=== PATIENT | female | born 2000 | race Caucasian/White ===

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

== ENCOUNTER 2022-09-23 18:07 | Emergency (ER) | payer OTHER ==
[2022-09-23 18:13] VITALS: RESP 18; BMI 21.4
[2022-09-23 18:33] VITALS: BP 122/76; PULSE 81
[2022-09-23] MEDS ORDERED: FAMOTIDINE 20 MG/50 ML IVPB 20 MG/50 ML MG IVPB ONE ×2 (18:35→18:45)
[2022-09-23] MEDS ORDERED: ONDANSETRON 4 MG/2 ML VIAL IVPUSH ONE (18:35)
[2022-09-23] MEDS ORDERED: SODIUM CHLORIDE 0.9% 500 ML INFUS.BAG IV ONE (18:35)
[2022-09-23] MEDS ORDERED: KETOROLAC TROMETHAMINE 15 MG/ML VIAL IVPUSH ONE (18:36)
[2022-09-23] MEDS ORDERED: KETOROLAC TROMETHAMINE 15 MG/ML VIAL ONE (18:44)
[2022-09-23] MEDS ORDERED: ONDANSETRON 4 MG/2 ML VIAL ONE (18:45)
[2022-09-23 18:51] LABS: BASO % 0.6 % (0-2.0); EOS % 1.2 % (0-4.5); HEMATOCRIT 40.2 % (32.4-45.2); HEMOGLOBIN 13.4 GM/dL (10.7-15.3); LYMPH % 18.7 % (8-40); MCH 31.3 pg (25.7-33.7); MCHC 33.4 g/dl (32.0-36.0); MEAN CELL VOLUME 93.8 fl (80-96); MEAN PLT VOLUME 9.8 fl (7.5-11.1); NEUT % 73.5 % (42.8-82.8); PLATELET COUNT 252 10^3/uL (134-434); RBC 4.28 M/mm3 (3.60-5.2); RDW 12.7 % (11.6-15.6); WHITE BLOOD COUNT 8.5 K/mm3 (4.0-10.0)
[2022-09-23] MEDS ORDERED: DICYCLOMINE HCL 20 MG/2 ML AMPUL IM ONE (18:54)
[2022-09-23 18:58] LABS: INR 1.13 (0.83-1.09); PROTHROMBIN TIME (PATIENT) 13.1 SEC (9.7-13.0)
[2022-09-23 19:01] LABS: ACTIVATED PTT 30.1 SECONDS (25.2-36.5)
[2022-09-23 19:14] LABS: POTASSIUM 3.4 mmol/L (3.5-5.1)
[2022-09-23 19:17] LABS: ALBUMIN 5.1 g/dl (3.4-5.0); CALCIUM 9.3 mg/dL (8.5-10.1); MAGNESIUM 2.3 mg/dL (1.8-2.4)
[2022-09-23] MEDS ORDERED: HALOPERIDOL LACTATE 5 MG/ML IM ONE ×2 (19:19→20:22)
[2022-09-23 19:20] LABS: CREATININE 0.7 mg/dL (0.55-1.3)
[2022-09-23 19:21] LABS: BILIRUBIN,TOTAL 0.9 mg/dL (0.2-1)
[2022-09-23 19:22] LABS: TOT PROT 8.7 g/dl (6.4-8.2)
[2022-09-23] MEDS ORDERED: ACETAMINOPHEN 1000 MG/100 ML BAG IVPB ONE (22:07)
[2022-09-23] MEDS ORDERED: ACETAMINOPHEN 500 MG TABLET (FP) PO ONE (23:02)
[2022-09-23] MEDS ORDERED: ACETAMINOPHEN 325 MG TABLET (FP) ONE (23:06)
[2022-09-23] MEDS ORDERED: SUCRALFATE 1 GM TABLET (FP) ONE (23:06)
[2022-09-24] MEDS ORDERED: SUCRALFATE 1 GM/10 ML UNIT DOSE CUPS PO ONE (22:04)
== END 2022-09-23 23:26 | disposition home or self-care (01) ==
LOC: JER 18:07
PROC: 3E033GC Introduction of Other Therapeutic Substance into Peripheral Vein, Percutaneous Approach (ICD-10-PCS; principal; 2022-09-23)
PROC: 3E0333Z Introduction of Anti-inflammatory into Peripheral Vein, Percutaneous Approach (ICD-10-PCS; 2022-09-23)
PROC: 3E033GC Introduction of Other Therapeutic Substance into Peripheral Vein, Percutaneous Approach (ICD-10-PCS; 2022-09-23)
PROC: 3E033GC Introduction of Other Therapeutic Substance into Peripheral Vein, Percutaneous Approach (ICD-10-PCS; 2022-09-23)
DX: R11.2 Nausea with vomiting, unspecified (principal); R10.13 Epigastric pain; R10.84 Generalized abdominal pain; R55 Syncope and collapse; K29.60 Other gastritis without bleeding; F12.188 Cannabis abuse with other cannabis-induced disorder
CPT/HCPCS: 36415; 71045-TC-FY; 74177-TC; 80053; 82550; 82962; 83605; 83690; 83735; 84484; 84703; 85025; 85610; 85730; 93005; 93010; 99285-25; Q9967